=== PATIENT | female | born 1980 | race African-American/Black ===

== ENCOUNTER 2023-09-17 22:59 | Emergency (ER) | payer MEDICAID, OTHER ==
[~2023-09-17] VITALS: Ht 152.4 cm; Wt 53.1 kg
[2023-09-17 23:42] VITALS: BP 141/100; PULSE 69; RESP 15; O2SAT 100
[2023-09-18] MEDS ORDERED: BENZOCAINE (DENTAL) 20 % SPRAY 60ML MT ONE (00:30)
[2023-09-18] MEDS ORDERED: AMOX875T4 PO (00:35)
[2023-09-18] MEDS ORDERED: IBUP-1456 PO (00:35)
[2023-09-18] MEDS ORDERED: KETOROLAC TROMETH 60MG/2ML VIAL IM ONE (00:45)
== END 2023-09-18 01:08 | disposition home or self-care (01) ==
LOC: ER 22:59
DX: S02.5XXA Fracture of tooth (traumatic), initial encounter for closed fracture (principal); K04.7 Periapical abscess without sinus; X58.XXXA Exposure to other specified factors, initial encounter; Y93.89 Activity, other specified; Y92.89 Other specified places as the place of occurrence of the external cause; Y99.8 Other external cause status
CPT/HCPCS: 96372; 99283; J1885